=== PATIENT | female | born 1995 | race Two or more races ===

== ENCOUNTER 2016-04-26 17:20 | Emergency (ER) | payer MEDICAID ==
[~2016-04-26 17:20] MED LIST: AMOXIL875 MG PO; BACTROBAN22 GM TP; CEPHALEXIN500 M PO; DICLEGIS DR 101 EACH PO; ELOCON15 GM TP; FEROSUL325 M1; HYDROCORTISONE CREAM; IBUPROFEN400 M1 PO; IBUPROFEN800 M1 PO; LORADAMED10 MG PO; MACROBID100 MG/CAP PO; NAPROSYN500 M1 PO; NAPROSYN500 MG PO; NORCO 5-325 TA1 EACH PO; NORCO 5/325 TAB1 TAB PO; PRENA1 CHEW TA1.4 M1 PO; PRENATAL VITAM1 EA11 PO; SKELAXIN800 M3 PO; TRIAMCINOLONE A30 GM TP; UNISOM50 M1 PO; ZOFRAN ODT4 MG PO; ZOFRAN ODT4 MG/UDTAB PO
[2016-04-26] MEDS ORDERED: NO HOME MEDICATION XX (18:46)
[2016-04-26 19:20] LABS: BASO % 0.5 % (0-2); EOS % 1.1 % (0-7); EOSINOPHIL ABSOLUTE COUNT 0.1 tho/cmm (0.0-0.7); HCT-HEMATOCRIT 33.5 % (34.0-49.0); HGB-HEMOGLOBIN 10.2 gm/dl (12.0-15.5); IMMATURE GRANULOCYTES ABSOLUTE 0.01 tho/cmm (0-0.03); IMMATURE GRANULOCYTES PERCENT 0.1 % (0-0.3); LYMPH ABSOLUTE COUNT 2.4 tho/cmm (0.8-4.5); MCH (MEAN CORPUSCULAR HGB) 22.9 pg (28.0-32.0); MCHC MEAN CORPUSCULAR HGB CONC 30.4 % (32.0-36.0); MCV (MEAN CELL VOLUME) 75.3 fl (82.0-96.0); MONO % 6.6 % (0-12); MONOCYTE ABSOLUTE COUNT 0.5 tho/cmm (0.0-1.2); NEUTROPHIL ABSOLUTE COUNT 4.6 tho/cmm (1.6-8.0); NEUTROPHIL-AUTOMATED 4.6 tho/cmm (1.6-8.0); NEUTROPHILS % 60.7 % (40-80); RED BLOOD COUNT 4.45 mil/cmm (4.00-5.20); RED CELL DISTRIBUTION WIDTH 19.1 % (12.4-16.4); WHITE BLOOD COUNT 7.6 tho/cmm (4.0-10.0)
[2016-04-26 19:44] LABS: PLATELET COUNT 152 tho/cmm (150-450)
[2016-04-26 19:45] LABS: PLATELET MORPHOLOGY MACRO
== END 2016-04-26 21:46 ==
LOC: EDMED 17:20
PROVIDERS: Emergency Medicine
DX: N93.8 Other specified abnormal uterine and vaginal bleeding (principal)